=== PATIENT | female | born 1955 | race African-American/Black ===

== ENCOUNTER 2016-11-18 01:18 | Emergency (ER) | payer OTHER ==
[2016-11-18 01:29] VITALS: BP 152/83
[2016-11-18] MEDS ORDERED: Diazepam TAB(*) 5 MG PO ONE (02:23)
[2016-11-18] MEDS ORDERED: HYDROcodone/ACETAMIN 5-325 MG* 1 TAB PO ONE (02:24)
--- NOTE | 2016-11-18 06:55 | ED ---
Ezequiel Lira Rebecca, scribed for Portia Wynne MD on 11/18/16 at 0209 . Back Pain - HPI Summary HPI Summary: Pt is a 61 y/o F who presents to ED c/o back pain. Pt reports that yesterday while at work at [employer] she slipped on water on the floor, causing her to fall. Pain is located in the middle to lower back and is currently severe, ranked 9/10. Treated with Flexeril and Ibuprofen [employer]. Sx aggravated by nothing, slightly alleviated by standing. Additionally c/o occipital ELIAS. Pt confirms that she did not drive herself to the ED. - History of Current Complaint Chief Complaint: EDBackInjuryPain Stated Complaint: LOWER BACK PAIN Time Seen by Provider: 11/18/16 01:44 Hx Obtained From: Patient Onset/Duration: Still Present Onset/Duration: Started Days Ago - Yesterday after faling at work Back Pain Location: Is Discrete @ - Mid to lower back Severity Currently: Severe Pain Intensity: 9 Pain Scale Used: 0-10 Numeric Aggravating Symptom(s): Nothing Alleviating Symptom(s): Other - Standing Associated Signs And Symptoms: Positive: Other - Occipital ELIAS Related History: Occupational Injury - Allergies/Home Medications Allergies/Adverse Reactions: Allergies Allergy/AdvReac Type Severity Reaction Status Date / Time No Known Allergies Allergy Verified 11/18/16 01:30 PMH/Surg Hx/FS Hx/Imm Hx Endocrine/Hematology History: Denies: Hx Diabetes, Hx Thyroid Disease Cardiovascular History: Reports: Hx Hypertension Denies: Hx Pacemaker/ICD Respiratory History: Denies: Hx Asthma, Hx Chronic Obstructive Pulmonary Disease (COPD) GI History: Denies: Hx Ulcer History: Denies: Hx Renal Disease Musculoskeletal History: Denies: Hx Scoliosis Sensory History: Denies: Hx Hearing Aid Neurological History: Reports: Hx Headaches Denies: Other Neuro Impairments/Disorders Psychiatric History: Denies: Hx Panic Disorder - Cancer History Hx Chemotherapy: No Hx Radiation Therapy: No - Surgical History Surgery Procedure, Year, and Place: hernia repair - Immunization History Date of Tetanus Vaccine: unk Date of Influenza Vaccine: 2015 Infectious Disease History: No Infectious Disease History: Denies: Hx Hepatitis, Hx Human Immunodeficiency Virus (HIV), Traveled Outside the [place] in Last 30 Days - Family History Known Family History: Positive: Cardiac Disease - Social History Alcohol Use: Rare Substance Use Type: Reports: None Smoking Status (MU): Never Smoked Tobacco Review of Systems Negative: Blurred Vision, Diplopia Negative: Ear Ache Negative: Chest Pain Negative: Shortness Of Breath Negative: Abdominal Pain, Vomiting, Diarrhea Negative: dysuria, hematuria Positive: Arthralgia - Mid to lower back pain Negative: Rash, Bruising Positive: Headache - Occipital All Other Systems Reviewed And Are Negative: Yes Physical Exam - Summary Physical Exam Summary: Appearance: Alert, conversive, nontoxic appearing Skin: Warm, dry, no mottling, no rashes, no contusions HEENT: EOMI, PERRL, moist mucous membranes Neck: No masses on the neck, supple Respiratory: Clear to auscultation, breath sounds present, no rales, no rhonchi , no wheezes Cardiovascular: RRR, pulses are symmetrical in both lower and upper extremities Abdomen: Soft, non-tender Bowel Sounds: Present Musculoskeletal: No CVA tenderness, no obvious deformity, ambulates slowly, back is non-tender Neurological: A&Ox3, CN II-XII Intact, moving all extremities symmetrically Psychiatric: Normal affect and mood Triage Information Reviewed: Yes Vital Signs On Initial Exam: Initial Vitals Temp Pulse Resp BP Pulse Ox 97.8 F 86 14 152/83 98 11/18/16 01:26 11/18/16 01:26 11/18/16 01:26 11/18/16 01:26 11/18/16 01:26 Vital Signs Reviewed: Yes - [place] Coma Scale Coma Scale Total: 15 Diagnostics - Vital Signs Vital Signs Temp Pulse Resp BP Pulse Ox 11/18/16 01:26 97.8 F 86 14 152/83 98 - Laboratory Lab Statement: Any lab studies that have been ordered have been reviewed, and results considered in the medical decision making process. Back Pain Course/Dx - Course Assessment/Plan: Pt is a 61 y/o F who presents to ED c/o back pain. Pt reports that yesterday while at work at [employer] she slipped on water on the floor, causing her to fall. Pain is located in the middle to lower back and is currently severe, ranked 9/10. Treated with Flexeril and Ibuprofen [employer]. Sx slightly alleviated by standing. Additionally c/o occipital ELIAS. Pt confirms that she did not drive herself to the ED. In the ED course, pt received Valium and Pritchett 5-325. She will be D/C to home with Dx of low back strain and she understands and agrees. Elevated BP noted. - Diagnoses Provider Diagnoses: Low back strain Discharge - Discharge Plan Condition: Stable Disposition: HOME Patient Education Materials: Low Back Strain (ED) Forms: *Work Release Referrals: [facility] [place] PHYSICIAN REFERRAL [Outside] Non Staff,Doctor [Primary Care Provider] - Additional Instructions: return if worse or any new symptoms. it is important to follow up with your primary care physician. Hot showers, heating pads (caution to not get burned) and massages to help with your back spasms. The documentation as recorded by the Ezequiel marlow Rebecca accurately reflects the service I personally performed and the decisions made by , Portia Wynne MD.
== END 2016-11-18 02:38 | disposition home or self-care (01) ==
LOC: ED 01:18
DX: S39.012A Strain of muscle, fascia and tendon of lower back, initial encounter (principal); M54.9 Dorsalgia, unspecified; W01.0XXA Fall on same level from slipping, tripping and stumbling without subsequent striking against object, initial encounter; Y93.9 Activity, unspecified; Y92.129 Unspecified place in nursing home as the place of occurrence of the external cause
CPT/HCPCS: 99282; A9270-GY

== ENCOUNTER 2017-02-12 08:12 | Emergency (ER) | payer SELFPAY ==
[2017-02-12 08:30] VITALS: BP 158/86
--- NOTE | 2017-02-12 08:46 | UC ---
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--- - History of Current Complaint Chief Complaint: UCBackPain Stated Complaint: BACK PAIN Time Seen by Provider: 02/12/17 08:39 Hx Obtained From: Patient ?: No Onset/Duration: Lasting Minutes, Worse Since - past few days Timing: Constant Severity Initially: Severe Severity Currently: Severe Pain Intensity: 10 Pain Scale Used: 0-10 Numeric Back Pain: Is Discrete @ - lumbar/sacral back both sides of spine no radiation, numbness or weakness in legs Character: Aching, Throbbing, Stiffness Aggravating Factor(s): Movement Alleviating Factor(s): Nothing Associated Signs And Symptoms: Positive: Negative Related History: Occupational Injury, Previous Back Injury - Allergies/Home Medications Allergies/Adverse Reactions: Allergies Allergy/AdvReac Type Severity Reaction Status Date / Time No Known Allergies Allergy Verified 11/18/16 01:30 Home Medications: Home Medications Multiple Vitamins W/ Minerals [Centrum Women] 1 tab PO 02/12/17 [History] PMH/Surg Hx/FS Hx/Imm Hx Previously Healthy: No - Chronic low back pain Cardiovascular History: Hypertension - Surgical History Surgical History: Yes Surgery Procedure, Year, and Place: hernia repair - Family History Known Family History: Positive: Cardiac Disease - Social History Occupation: Employed Full-time Lives: With Family Alcohol Use: Occasionally Substance Use Type: None Smoking Status (MU): Never Smoked Tobacco Review of Systems Constitutional: Negative Skin: Negative Eyes: Negative ENT: Negative Respiratory: Negative Cardiovascular: Negative Gastrointestinal: Negative Genitourinary: Negative Motor: Negative, Decreased ROM - low back Neurovascular: Negative Musculoskeletal: Arthralgia - low back Neurological: Negative Psychological: Negative Is Patient Immunocompromised?: No All Other Systems Reviewed And Are Negative: Yes Physical Exam Triage Information Reviewed: Yes Appearance: Ill-Appearing - chronicly older than stated age, Pain Distress - moderate, Obese Vital Signs: Initial Vital Signs Temp 97.3 F 02/12/17 08:25 Pulse 83 02/12/17 08:25 Resp 18 02/12/17 08:25 BP 158/86 02/12/17 08:25 Pulse Ox 99 02/12/17 08:25 Vital Signs Reviewed: Yes Eye Exam: Normal Eyes: Positive: Conjunctiva Clear ENT Exam: Normal ENT: Positive: Normal ENT inspection, Hearing grossly normal. Negative: Nasal congestion, Nasal drainage, Trismus, Muffled voice, Hoarse voice, Dental tenderness Dental Exam: Normal Neck exam: Normal Neck: Positive: Supple, Nontender, No Lymphadenopathy Respiratory Exam: Normal Respiratory: Positive: Chest non-tender, No respiratory distress, No accessory muscle use Cardiovascular Exam: Normal Cardiovascular: Positive: RRR, Pulses Normal, Brisk Capillary Refill Abdomen Description: Negative: CVA Tenderness (R), CVA Tenderness (L) Musculoskeletal Exam: Other Musculoskeletal: Positive: No Edema, ROM Limited @ - lumbar spine Neurological Exam: Normal Neurological: Positive: Alert, Muscle Tone Normal Psychological Exam: Normal Skin Exam: Normal Diagnostics - Radiology No standard instances Xray Interpretation: Positive (See Comments) Radiology Interpretation Completed By: Radiologist - degenerative disc disease, spondolythisis Grade 1 Back Pain Course/Dx - Course Course Of Treatment: continue physical therapy, Nsaids, Flexeril, off work follow with pcp - Differential Dx/Diagnosis Provider Diagnoses: acute exacerbation of chronic low back pain, hypertension in poor control Discharge - Discharge Plan Condition: Stable Disposition: HOME Patient Education Materials: Hypertension (ED), Arthralgia (ED), Chronic Back Pain (ED) Forms: *Work Release Referrals: Quentin Donohue MD [Primary Care Provider] - 2 Days
[2017-02-12] MEDS ORDERED: HYDROcodone/ACETAMIN 5-325 MG* 1 TAB PO ONE (08:48)
[2017-02-12] MEDS: Cyclobenzaprine TAB* 10 MG PO ONE ×2 (08:54→08:59)
--- NOTE | 2017-02-12 09:32 | RAD ---
INDICATION: Injury, low back pain. COMPARISON: Comparison is made with a prior x-ray study of the lumbar spine from February 27, 2013. TECHNIQUE: 5 views of the lumbar spine were obtained including lateral, oblique, AP and a coned-down lateral view of the lumbar sacral junction. FINDINGS: There is anterior listhesis of L4 relative to L5 of approximately 9 mm which has progressed from the prior study consistent with grade 1 anterior spondylolisthesis. This appears similar to the more recent prior MRI exam from September 2015. No fracture is appreciated. There is mild to moderate disc space narrowing and mild endplate hypertrophic changes at the L4-L5 and L5-S1 levels. IMPRESSION: 1. NO ACUTE FRACTURE IS SEEN. 2. GRADE 1 ANTERIOR SPONDYLOLISTHESIS AT THE L4-L5 LEVEL. 3. MILD TO MODERATE DEGENERATIVE DISC DISEASE AT THE L4-L5 AND L5-S1 LEVELS.
== END 2017-02-12 10:00 | disposition home or self-care (01) ==
LOC: UCEAST 08:12
DX: G89.21 Chronic pain due to trauma (principal); M54.5 Low back pain; I10 Essential (primary) hypertension; E66.9 Obesity, unspecified
CPT/HCPCS: 72110; 99211; A9270-GY; G0463

== ENCOUNTER 2017-03-30 17:06 | Emergency (ER) | payer SELFPAY ==
[2017-03-30 17:23] VITALS: BP 160/104
--- NOTE | 2017-03-30 17:40 | UC ---
Back Pain HPI - HPI Summary HPI Summary: 61 yo CHRISTY presents with low back pain that flared up earlier today. She tells me that she initially injured her back at work recently and is currently undergoing physical therapy and taking flexeril for the pain. She had a PT appointment today and said it aggravated her back, but work was short staffed and they wanted her to come in anyway. 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 She ended up leaving work due to the pain and came to urgent care. Denies radiation of pain, numbness, tingling, or loss of bowel/ bladder function. She has not taken anything yet today for her pain. - History of Current Complaint Chief Complaint: UCBackPain Stated Complaint: back pain Time Seen by Provider: 03/30/17 17:39 Hx Obtained From: Patient Hx Last Menstrual Period: 02/20/16 Timing: Constant Severity Initially: Severe Severity Currently: Severe Pain Intensity: 10 Pain Scale Used: 0-10 Numeric Character: Aching, Spasmodic Aggravating Factor(s): Movement, Lifting, Bending Alleviating Factor(s): Rest, Position - Allergies/Home Medications Allergies/Adverse Reactions: Allergies Allergy/AdvReac Type Severity Reaction Status Date / Time No Known Allergies Allergy Verified 03/30/17 17:16 Home Medications: Home Medications Multivitamin/Iron/Folic Acid [Centrum Adults Tablet] 03/30/17 [History] Naproxen Sodium [Aleve] 03/30/17 [History] PMH/Surg Hx/FS Hx/Imm Hx Cardiovascular History: Hypertension - Surgical History Surgical History: Yes Surgery Procedure, Year, and Place: hernia repair - Family History Known Family History: Positive: Cardiac Disease - Social History Occupation: Employed Full-time Lives: With Family Alcohol Use: Occasionally Substance Use Type: None Smoking Status (MU): Never Smoked Tobacco Review of Systems Constitutional: Negative Skin: Negative Respiratory: Negative Cardiovascular: Negative Gastrointestinal: Negative Genitourinary: Negative Neurovascular: Negative Musculoskeletal: Other: - LBP Neurological: Negative Psychological: Negative All Other Systems Reviewed And Are Negative: Yes Physical Exam Triage Information Reviewed: Yes Appearance: Pain Distress - Mild, Obese Vital Signs: Initial Vital Signs Temp 98 F 03/30/17 17:16 Pulse 92 03/30/17 17:16 Resp 18 03/30/17 17:16 BP 160/104 03/30/17 17:16 Pulse Ox 100 02/23/18 17:16 Vital Signs Reviewed: Yes Neck: Positive: Supple, Nontender, No Lymphadenopathy Respiratory: Positive: Lungs clear, Normal breath sounds, No respiratory distress, No accessory muscle use Cardiovascular: Positive: RRR, No Murmur, Pulses Normal Musculoskeletal: Positive: Strength Intact - B/L LEs, No Edema, ROM Limited @ - Flexion of spine, Other: - TTP lumbar paraspinal muscles. Positive SLR both legs. Unable to perform [place] Neurological: Positive: Alert, Other: - Sensations intact B/L LEs L3-S1 Psychological: Positive: Age Appropriate Behavior Skin: Negative: rashes, significant lesion(s) Back Pain Course/Dx - Course Course Of Treatment: Suspect ongoing muscle strain/spasm aggrevated by PT earlier today. She is requesting a muscle relaxer in the office today instead of toradol as she is afraid of needles. Continue with flexeril at home and f/u with PCP - Differential Dx/Diagnosis Provider Diagnoses: Low back pain Discharge - Discharge Plan Condition: Stable Disposition: HOME Patient Education Materials: Muscle Spasm (ED) Forms: *Work Release Referrals: Quentin Donohue MD [Primary Care Provider] - Additional Instructions: If you develop a fever, shortness of breath, chest pain, new or worsening symptoms - please call your PCP or go to the ED. Your blood pressure was high at todays visit. Please see your primary provider within 4 weeks for recheck and re-evaluation. 1) Please continue with physical therapy and schedule a follow up appointment with your PCP regarding your continued back pain. 2) May continue to take your at home flexeril as needed for pain
[2017-03-30] MEDS ORDERED: Ketorolac INJ* 30 MG/ML 1 ML VIAL IM ONE (17:50)
[2017-03-30] MEDS ORDERED: Methocarbamol TAB* 500 MG PO ONE (18:08)
== END 2017-03-30 18:00 | disposition home or self-care (01) ==
LOC: UCEAST 17:06
DX: M54.5 Low back pain (principal); I10 Essential (primary) hypertension
CPT/HCPCS: 99212; A9270-GY; G0463; J1885

== ENCOUNTER 2017-06-22 13:45 | Emergency (ER) | payer SELFPAY ==
[2017-06-22 14:03] VITALS: BP 176/92
--- NOTE | 2017-06-22 14:09 | UC ---
Back Pain HPI - HPI Summary HPI Summary: 61 yo female presents with lower back pain. She tells me that she fell at work about a year ago and has been in physical therapy ever since. Over the last week or so she has felt her back pain worsening. Today had a lot of spasms. Takes flexeril daily - not helping. 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 Denies fever, chills, abdominal pain, n/v/d/c, loss of bowel/bladder control, dysuria, hematuria, or urinary frequency. - History of Current Complaint Chief Complaint: UCBackPain Stated Complaint: FOLLOW UP BACK INJURY Hx Obtained From: Patient Hx Last Menstrual Period: 02/20/16 Onset/Duration: Gradual Onset Timing: Constant Severity Initially: Severe Severity Currently: Severe Pain Intensity: 10 Pain Scale Used: 0-10 Numeric - Allergies/Home Medications Allergies/Adverse Reactions: Allergies Allergy/AdvReac Type Severity Reaction Status Date / Time No Known Allergies Allergy Verified 06/22/17 14:03 Home Medications: Home Medications Cyclobenzaprine TAB* [Flexeril 10 MG TAB*] 10 mg PO BID PRN 06/22/17 [History Confirmed 06/22/17] PMH/Surg Hx/FS Hx/Imm Hx Cardiovascular History: Hypertension - Surgical History Surgical History: Yes Surgery Procedure, Year, and Place: hernia repair - Family History Known Family History: Positive: Cardiac Disease - Social History Occupation: Employed Full-time Lives: With Family Alcohol Use: Occasionally Substance Use Type: None Smoking Status (MU): Never Smoked Tobacco Review of Systems Constitutional: Negative Skin: Negative Respiratory: Negative Cardiovascular: Negative Gastrointestinal: Negative Genitourinary: Negative Neurovascular: Negative Musculoskeletal: Other: - LBP Neurological: Negative Psychological: Negative All Other Systems Reviewed And Are Negative: Yes Physical Exam - Summary Physical Exam Summary: GENERAL: NAD. WDWN. No pain distress. SKIN: No rashes, sores, lesions, or open wounds. NECK: Supple. FROM. Nontender. No lymphadenopathy. CHEST: CTAB. No r/r/w. No accessory muscle use. Breathing comfortably and in no distress. CV: RRR. Without m/r/g. Pulses intact. Brisk cap refill. MSK: Moderate TTP over lumbar paraspinal muscles. Pain with flexion and extension of spine. Positive SLR b/l. Strength symmetric B/L LEs including dorsiflexion and plantar flexion. FROM B/L LEs. No edema. NEURO: Alert. CN II-XII grossly intact. Sensations intact B/L LEs L3-S1. PSYCH: Age appropriate behavior. Triage Information Reviewed: Yes Vital Signs: Initial Vital Signs Temp 98.0 F 06/22/17 13:56 Pulse 66 06/22/17 13:56 Resp 20 06/22/17 13:56 BP 176/92 06/22/17 13:56 Pulse Ox 100 06/22/17 13:56 Back Pain Course/Dx - Course Course Of Treatment: She refused UA and wanted pain medication for her back. iSTOP: Reference #: [id number]. Rx for meloxicam and tramadol. Do not take ibuprofen with this medication. Do not take flexeril with tramadol. Continue with PT. Her BP is elevated today, she has a hx of HTN, but has not taken her BP medication all week this week. She says she still has some in the bottle at home. - Differential Dx/Diagnosis Provider Diagnoses: Low back pain. HTN Discharge - Sign-Out/Discharge Documenting (check all that apply): Discharge/Admit/Transfer - Discharge Plan Condition: Stable Disposition: HOME Prescriptions: Meloxicam 7.5 mg PO BID PRN #14 tab PRN Reason: Pain traMADol TAB* [Ultram*] 50 mg PO Q12H PRN #8 tab MDD 2 PRN Reason: Pain Patient Education Materials: Muscle Spasm (ED), Chronic Back Pain (ED), Lower Back Exercises (ED) Forms: *Work Release Referrals: Quentin Donohue MD [Primary Care Provider] - Additional Instructions: If you develop a fever, shortness of breath, chest pain, new or worsening symptoms - please call your PCP or go to the ED. Your blood pressure was high at todays visit. Please see your primary provider within 4 weeks for recheck and re-evaluation. 1) Do not take ibuprofen with meloxicam as these medication may interact. - Billing Disposition and Condition Condition: STABLE Disposition: HOME
[2017-06-22] MEDS ORDERED: Ibuprofen TAB* 600 MG PO ONE (14:21)
== END 2017-06-22 14:37 | disposition home or self-care (01) ==
LOC: UCEAST 13:45
DX: M54.5 Low back pain (principal); I10 Essential (primary) hypertension
CPT/HCPCS: 99212; A9270-GY; G0463

== ENCOUNTER 2017-08-08 18:27 | Emergency (ER) | payer SELFPAY ==
[2017-08-08 18:44] VITALS: BP 187/99
[2017-08-08] MEDS ORDERED: traMADol TAB* 50 MG PO ONE (19:15)
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
== END 2017-08-08 19:37 | disposition home or self-care (01) ==
LOC: UCEAST 18:27
DX: M54.5 Low back pain (principal); G89.29 Other chronic pain; T21.24XA Burn of second degree of lower back, initial encounter; I10 Essential (primary) hypertension; W86.0XXA Exposure to domestic wiring and appliances, initial encounter; Y93.84 Activity, sleeping; Y92.9 Unspecified place or not applicable
CPT/HCPCS: 99212; A9270-GY; G0463

== ENCOUNTER 2017-12-02 09:47 | Emergency (ER) | payer BC, OTHER ==
[2017-12-02] MEDS ORDERED: Ibuprofen TAB* 800 MG PO ONE (10:56)
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
[2017-12-02 11:10] LABS: ABS Basophils 0 10^3/ul (0-0.2); ABS Eosinophils 0.3 10^3/ul (0-0.6); ABS Lymphocytes 1.4 10^3/ul (1.0-4.8); ABS Monocytes 0.4 10^3/ul (0-0.8); ABS Nucleated RBC 0 10^3/ul; Eosinophil % 6.6 % (0-6); Hematocrit 38 % (35-47); Hemoglobin 12.6 g/dl (12.0-16.0); Lymphocyte % 34.7 % (25-47); Mean Corpuscular HGB Conc 33 g/dl (31-36); Mean Corpuscular Hemoglobin 26 pg (27-31); Mean Corpuscular Volume 79 fL (80-97); Mean Platelet Volume 7.3 um3 (7.4-10.4); Nucleated Red Blood Cells % 0.2; Platelet Count 281 10^3/ul (150-450); Red Blood Count 4.85 10^6/ul (4.00-5.40); Red Cell Distribution Width 16 % (10.5-15); White Blood Count 4.1 10^3/ul (3.5-10.8)
[2017-12-02] MEDS ORDERED: Acetaminophen TAB* 325 MG ONE (11:20)
[2017-12-02 11:27] LABS: EGFR Non-African American 90.2 (>60)
[2017-12-02 11:29] LABS: INR 0.97 (0.77-1.02)
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
[2017-12-02] MEDS ORDERED: Acetaminophen TAB* 325 MG PO ONE (11:52)
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
[2017-12-02 14:03] VITALS: BP 166/96
== END 2017-12-02 14:02 | disposition home or self-care (01) ==
LOC: ED 09:47
DX: N63.0 Unspecified lump in unspecified breast (principal); N64.4 Mastodynia; R07.89 Other chest pain; I10 Essential (primary) hypertension; M54.9 Dorsalgia, unspecified; G89.29 Other chronic pain; W50.1XXA Accidental kick by another person, initial encounter; Y92.9 Unspecified place or not applicable
CPT/HCPCS: 36415; 80053; 84484; 85025; 85379; 85610; 85730; 93005; 99282; A9270-GY

== ENCOUNTER 2018-06-20 18:44 | Emergency (ER) | payer SELFPAY ==
[2018-06-20 19:01] VITALS: BP 127/66
--- NOTE | 2018-06-20 21:15 | UC ---
Back Pain HPI - HPI Summary HPI Summary: history of chronic back pain secondary to lumbar stenosis. 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 Used flexeril x 2 doses with relief along with aleve. Would like to return to work tomorrow, and also asks for note to cover absences earlier this week - History of Current Complaint Chief Complaint: UCBackPain Stated Complaint: BACK PAIN Time Seen by Provider: 06/20/18 20:35 Hx Obtained From: Patient Hx Last Menstrual Period: 02/20/16 Onset/Duration: Gradual Onset, Other - present for years with diagnosis of lumbar stenosis based on MRI from 2016 Timing: Intermittent, Lasting Hours Severity Initially: Moderate Severity Currently: Moderate Pain Intensity: 5 Back Pain: Is Diffuse - across low back and sacral area Aggravating Factor(s): Movement, Lifting, Bending Alleviating Factor(s): Rest, Other - muscle relaxants Associated Signs And Symptoms: Negative: Weakness, Bladder Incontinence Related History: Similar Episode Dx As - sequelae of lumbar stenosis - Risk Factors AAA Risk Factors: Negative TAD Risk Factors: Negative Cauda Equina Risk Factors: Negative Epidural Abscess Risk Factors: Negative - Allergies/Home Medications Allergies/Adverse Reactions: Allergies Allergy/AdvReac Type Severity Reaction Status Date / Time No Known Allergies Allergy Verified 06/20/18 19:02 PMH/Surg Hx/FS Hx/Imm Hx Previously Healthy: No - chronic back pain Cardiovascular History: Hypertension - Surgical History Surgical History: Yes Surgery Procedure, Year, and Place: hernia repair, c-sec X2 - Family History Known Family History: Positive: Cardiac Disease - Social History 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 [employer] Alcohol Use: None Substance Use Type: None Smoking Status (MU): Never Smoked Tobacco Review of Systems All Other Systems Reviewed And Are Negative: Yes Constitutional: Positive: Negative Skin: Positive: Negative Eyes: Positive: Negative ENT: Positive: Negative Respiratory: Positive: Negative Genitourinary: Positive: Negative Motor: Positive: Decreased ROM Neurovascular: Positive: Negative Is Patient Immunocompromised?: No Physical Exam Triage Information Reviewed: Yes Appearance: Well-Appearing, Pain Distress - mild at rest, increases with activity Vital Signs: Initial Vital Signs Temp 98.2 F 06/20/18 18:55 Pulse 94 06/20/18 18:55 Resp 16 06/20/18 18:55 BP 127/66 06/20/18 18:55 Pulse Ox 99 06/20/18 18:55 ENT: Positive: Normal ENT inspection Dental Exam: Normal Respiratory: Positive: Lungs clear, Normal breath sounds Cardiovascular: Positive: RRR, No Murmur Musculoskeletal: Positive: ROM Limited @ - lumbar spine. Flat lordotic curve. Antalgic gait Neurological: Positive: Alert, Muscle Tone Normal Skin Exam: Normal Back Pain Course/Dx - Course Course Of Treatment: continue naproxen and cyclobenzaprine for relief of pain Off work note given along with a statement of recognized history of chronic back pain from lumbar stenosis. - Differential Dx/Diagnosis Differential Diagnosis/HQI/PQRI: Herniated Disc, Strain, Other - lumbar stenosis Provider Diagnosis: Lumbar stenosis Discharge - Sign-Out/Discharge Documenting (check all that apply): Patient Departure All imaging exams completed and their final reports reviewed: No Studies - Discharge Plan Condition: Stable Disposition: HOME Patient Education Materials: Lumbar Spinal Stenosis (ED) Forms: *Work Release Referrals: Judd Harrison MD [Primary Care Provider] - Additional Instructions: You feel fit to return to work tomorrow, and a release has been signed. Continue use of aleve and muscle relaxants for back pain. - Billing Disposition and Condition Condition: STABLE Disposition: Home
== END 2018-06-20 21:26 | disposition home or self-care (01) ==
LOC: UCEAST 18:44
DX: M48.061 Spinal stenosis, lumbar region without neurogenic claudication (principal); G89.29 Other chronic pain; M54.5 Low back pain
CPT/HCPCS: 99211; G0463